=== PATIENT | female | born 1995 | race Caucasian/White ===

== ENCOUNTER 2019-04-21 16:04 | Inpatient (IN) ==
[2019-04-21] MEDS ORDERED: STADOL IV PRN ×2 (17:07→19:42)
[2019-04-21 17:18] LABS: URINE SOURCE VOIDED
[2019-04-21 17:21] LABS: BILIRUBIN URINE NEGATIVE (NEGATIVE); BLOOD URINE 4+ (NEGATIVE); CLARITY VERY CLOUDY (CLEAR); COLOR YELLOW; GLUCOSE URINE NEGATIVE (NEGATIVE); KETONE URINE NEGATIVE (NEGATIVE); LEUKOCYTES URINE NEGATIVE (NEGATIVE); NITRITE URINE NEGATIVE (NEGATIVE); PROTEIN URINE NEGATIVE (NEGATIVE); SP GRAVITY URINE 1.005; UROBILINOGEN URINE NORMAL
[2019-04-21] MEDS: LR 1,000 ML IV SCH ×2 (17:50→18:31)
[2019-04-21] MEDS ORDERED: STADOL IV ONE (19:28)
[2019-04-21] MEDS ORDERED: KEFZOL 1 GM/D5W 1 GM/50 ML IVPB IV PRN (19:42)
[2019-04-21] MEDS ORDERED: PEPCID IV PRN (19:42)
[2019-04-21] MEDS ORDERED: TYLENOL PO PRN (19:42)
[2019-04-21] MEDS ORDERED: ZOFRAN IV PRN (19:42)
[2019-04-21] MEDS ORDERED: REGLAN PO ONE (19:42)
[2019-04-21] MEDS ORDERED: PEPCID PO ONE (19:42)
[2019-04-21] MEDS ORDERED: PEPCID PO PRN (19:42)
[2019-04-21] MEDS ORDERED: SODIUM CHLORIDE 0.9% INJ SCH (19:45)
[2019-04-21] MEDS ORDERED: LR 1,000 ML IV SCH (19:45)
[2019-04-21] MEDS ORDERED: PITOCIN 30 UNITS/NS 30 UNIT/500 ML IV.SOLN IV SCH (19:45)
[2019-04-21 19:54] LABS: BASO# 0.03 X1000 (0.0-0.2); BASO% 0.2 % (0.0-0.8); EOS# 0.04 X1000 (0.0-0.7); EOS% 0.3 % (0.0-10.0); HEMATOCRIT 39.1 % (37.0-47.0); HEMOGLOBIN 12.7 g/dL (12.0-16.0); IMM GRAN# 0.03 X1000 (0.0-0.04); IMM GRAN% 0.2 % (0.0-0.5); LYMPH# 2.09 X1000 (1.2-3.4); LYMPH% 16.7 % (20.5-51.1); MCH 26.6 PG (27-31); MCHC 32.5 g/dL (33-37); MCV 81.8 FL (81-99); MONO# 1.31 X1000 (0.11-0.59); MONO% 10.5 % (1.7-9.3); MPV 11.1 FL (7.4-10.4); NEUT# 8.99 X1000 (1.4-6.5); NEUT% 72.1 % (42.2-75.2); PLT 277 X1000 (130-400); RBC 4.78 XMIL (4.2-5.4); RDW 13.2 % (11.5-14.5); WBC 12.49 X1000 (4.8-10.8)
[2019-04-21] MEDS ORDERED: NAROPIN 0.2% INJ ONE (20:15)
[2019-04-21] MEDS ORDERED: NAROPIN 0.2% EPIDURAL ONE (20:15)
[2019-04-21] MEDS ORDERED: FENTANYL IV ONE (20:15)
[2019-04-21] MEDS ORDERED: FENTANYL-BUPIV-NS 2 MCG-0.1% 250 ML EPIDURAL ONE (21:00)
--- NOTE | 2019-04-21 22:26 | HISTORY AND PHYSICAL ---
HISTORY OF PRESENT ILLNESS: Willa is a 24-year-old 1, para 0, at 38 and 6/7 weeks gestation by 9-week ultrasound, who presented to Labor and delivery with contraction activity. She was 3 cm dilated at presentation. After a couple hours observation, she progressed to 4 cm dilated requiring IV medication to maintain her pain management and was admitted for labor. PREVIOUS MEDICAL HISTORY: Pertinent for kidney stones. ALLERGY: Amoxicillin. FAMILY HISTORY: Father had an FL with hypertension. Grandfather with an FL. Brother with type 1 diabetes. GYNECOLOGIC HISTORY: Negative for STDs. Normal Pap smear. SOCIAL HISTORY: Negative for smoking, alcohol, or drugs. MEDICINES: Prozac 20 mg p.o. daily, vitamins. REVIEW OF SYSTEMS: Negative for chest pain, shortness of breath, headache, cough, runny nose, fever, sore throat. PHYSICAL EXAM: GENERAL: Consistent with normal healthy woman appearing stated age. LUNGS: Breathing is nonlabored. HEART: Regular rate and rhythm. ABDOMEN: Gravid. EXTREMITIES: Without clubbing, cyanosis, edema. PELVIC: Sterile vaginal exam is vertex, 5 cm, 100% effaced, 0 station. ASSESSMENT: This is a 24-year-old 1, para 0, at 38 and 6/7 weeks gestation by 9-week ultrasound, presented in labor. 1. Management of labor. heart tones indicate healthy baby, reassuring category 1. 2. Pain management, epidural. 3. Review of labs indicate group B negative, A positive blood type. Most recent hemoglobin 12.5. 4. Estimated weight 3700 g. 5. Anticipate normal spontaneous vaginal delivery.
[2019-04-22] MEDS ORDERED: XYLOCAINE-MPF 1% INJ ONE (00:48)
[2019-04-22] MEDS ORDERED: MINERAL OIL PO ONE (00:48)
[2019-04-22] MEDS: LR 1,000 ML IV SCH (03:00)
[2019-04-22] MEDS ORDERED: AMBIEN PO PRN (03:35)
[2019-04-22] MEDS ORDERED: BENADRYL IV PRN (03:35)
[2019-04-22] MEDS ORDERED: BENADRYL PO PRN (03:35)
[2019-04-22] MEDS ORDERED: BOOSTRIX VACCINE IM ONE (03:35)
[2019-04-22] MEDS ORDERED: HYDROXYZINE IM PRN (03:35)
[2019-04-22] MEDS ORDERED: M-M-R II VACCINE SUBQ ONE (03:35)
[2019-04-22] MEDS ORDERED: PITOCIN IM PRN (03:35)
[2019-04-22] MEDS ORDERED: ATARAX PO PRN (03:35)
[2019-04-22] MEDS ORDERED: CYTOTEC PO PRN (03:35)
[2019-04-22] MEDS ORDERED: PITOCIN 20 UNITS/NS 20 UNITS/1,000 ML IV.SOLN IV SCH (03:45)
[2019-04-22] MEDS ORDERED: PITOCIN 30 UNITS/NS 30 UNIT/500 ML IV.SOLN IV SCH (03:45)
--- NOTE | 2019-04-22 04:13 | OPERATIVE NOTE ---
PROCEDURE DATE: 04/22/2019 BANKRUPTCY JUDGE: Dr. Sumanth Polk. PROCEDURE: A normal spontaneous vaginal delivery. ANESTHESIA: Epidural. ESTIMATED BLOOD LOSS: 300 mL. COMPLICATIONS: None. FINDINGS: Live-born male in cephalic position. PROCEDURE: The patient was placed in the lithotomy position and Valsalva'd during 2nd stage of labor. Baby crowned and with the next contraction delivered over intact perineum. The infant head at OA position. The anterior shoulder delivered with Safia position, and the remainder of the delivered without difficulty or complication. The infant was handed to the maternal abdomen, where it was dried and warmed. The cord was clamped x2 and cut by the father. Please see chart for 's and weight. The cord blood was obtained and the placenta delivered intact with a three-vessel cord. The perineum was inspected and found hemostatic and intact.
[2019-04-22] MEDS: PERI MEDS (DERMOPLAST/NUPERCAINAL/TUCKS) MISC PRN (05:02)
[2019-04-22] MEDS: MOTRIN PO PRN ×2 (09:40→18:06)
[2019-04-22] MEDS: PERICOLACE PO SCH (23:04)
[2019-04-23] MEDS: MOTRIN PO PRN ×2 (03:53→16:23)
[2019-04-23] MEDS: PERI MEDS (DERMOPLAST/NUPERCAINAL/TUCKS) MISC PRN (03:53)
[2019-04-23 07:01] LABS: BASO# 0.05 X1000 (0.0-0.2)
[2019-04-23 07:02] LABS: BASO% 0.3 % (0.0-0.8); EOS# 0.12 X1000 (0.0-0.7); EOS% 0.8 % (0.0-10.0); HEMATOCRIT 31.9 % (37.0-47.0); IMM GRAN# 0.08 X1000 (0.0-0.04); IMM GRAN% 0.5 % (0.0-0.5); LYMPH% 18.5 % (20.5-51.1); MCH 26.4 PG (27-31); MCHC 31.3 g/dL (33-37); MCV 84.2 FL (81-99); MONO# 1.49 X1000 (0.11-0.59); MONO% 9.9 % (1.7-9.3); MPV 10.1 FL (7.4-10.4); NEUT# 10.57 X1000 (1.4-6.5); PLT 218 X1000 (130-400); RBC 3.79 XMIL (4.2-5.4); RDW 13.4 % (11.5-14.5); WBC 15.11 X1000 (4.8-10.8)
[2019-04-23] MEDS: FERROUS SULFATE PO SCH (09:04)
[2019-04-23] MEDS: PERICOLACE PO SCH (20:35)
--- NOTE | 2019-04-24 08:07 | OB/GYN PROGRESS NOTE ---
Progress Note OB - . OB Progress Note: Vital Signs - 24 hr 04/23/19 16:20 04/23/19 19:44 04/24/19 01:00 Temperature 97.2 F L 96.8 F L 97.3 F L Pulse Rate 109 H 73 58 L Respiratory Rate 16 20 18 Blood Pressure 118/73 113/60 88/50 O2 Sat by Pulse Oximetry 98 96 97 24 yo PPD#2 s/p with RNI. Patient seen and examined. Pain controlled, normal lochia. She is ambulating and voiding without difficulty. She is tolerating regular diet, denies N/V, fever, chills. She is breast feeding. She is undecided on PP contraception, considering POPs. Infant circumcised yesterday. Physical Exam-General - PHYSICAL EXAM-ADULT Initial Vital Signs Reviewed: Yes - CONSTITUTIONAL General Appearance: appears well, alert, no apparent distress - EYES Eyes: PERRL/EOMI - HEAD, EARS, NOSE, MOUTH & THROAT HENMT: normocephalic/atraumatic - RESPIRATORY Respiratory: normal breath sounds, no respiratory distress - CARDIOVASCULAR Cardiovascular: regular rate, rhythm - GASTROINTESTINAL (ABDOMEN) Abdominal Exam: normal bowel sounds, non tender, soft, other (fundus firm, below umbilicus) - MUSCULOSKELETAL Extremity: normal range of motion, non-tender - PSYCHIATRIC Psych/Mental Status: normal mood/affect Assessment/Plan - Assessment/Plan Assessment: 24 yo PPD#2 s/p with RNI 1. HD stable, afebrile PP Hgb 10/31.9 2. MMR prior to discharge for RNI 3. D/C home today 4. S/P infant circumcision 5. Routine PP care
[2019-04-24 08:24] VITALS: BP 106/53
[2019-04-24] MEDS: FERROUS SULFATE PO SCH (09:11)
--- NOTE | 2019-04-25 12:43 | DISCHARGE SUMMARY ---
ADMISSION DATE: 04/21/2019 DISCHARGE DATE: 04/24/2019 ATTENDING PHYSICIAN: Dr. Galileo Sinclair. ADMITTING PHYSICIAN: Dr. Sumanth Polk. FINAL DIAGNOSES: 1. A 24-year-old, 1, para 1-0-0-1, day #2 status post spontaneous vaginal delivery. 2. Rubella nonimmune. PROCEDURES: Spontaneous vaginal delivery on 04/22/2019. HISTORY OF PRESENT ILLNESS: The patient is a 24-year-old, G 1, P 0, at 38 weeks and 6 days who presented to labor and delivery with regular contractions. She exhibited cervical change after arrival and a decision was made to admit the patient for labor. She underwent a normal spontaneous vaginal delivery on April 22. She had a routine course. On day #2, she was deemed stable for discharge. Her pain was controlled. She had normal lochia. She was ambulating and voiding without difficulty and tolerating a regular diet. She denied nausea, vomiting, fevers, and chills. She is . She is undecided on contraception but consider progesterone only pills. She desired circumcision and that was performed on April 23. She received a MMR vaccine prior to discharge for rubella nonimmune status. DISCHARGE MEDICATIONS: Motrin 800 mg p.o. q.8 hours p.r.n. pain. DISCHARGE INSTRUCTIONS: The patient was instructed to follow up with Dr. Sinclair in 6 weeks for a visit. Instructed to notify doctor with temperature greater than 100.4 degrees Fahrenheit, severe abdominal pain, foul-smelling vaginal discharge, heavy vaginal bleeding greater than 1 pad an hour.
== END 2019-04-24 11:30 | disposition home or self-care (01) | DRG 807 ==
LOC: OPLD 16:04 → P.LD 16:06
PROVIDERS: ADMIT Obstetrics & Gynecology; ATTEND Obstetrics & Gynecology Obstetrics